=== PATIENT | male | born 1950 | race Caucasian/White ===

== ENCOUNTER 2016-11-06 09:21 | Outpatient (CLI) | payer OTHER ==
[~2016-11-06 09:21] MED LIST: FLUOXETINE20 MG PO; HYCET1 ML PO; MULTIVITAMIN1 TAB PO
--- NOTE | 2016-11-06 11:23 | DIAGNOSTIC IMAGING REPORT ---
PROCEDURE: CT THORAX WITH CONTRAST INDICATION: PNEUMONIA TECHNIQUE: 100 ml of Isovue 300 was injected intravenously and axial images were obtained of the chest with coronal and sagittal reformations. COMPARISON: None. FINDINGS: Emphysema with large right upper lobe bullae. There is a 3.4 x 3.7 cm spiculated right upper lobe mass. There is a 3 mm right upper lobe nodule (image 22). Nonenlarged 7 mm short axis pretracheal lymph nodes. No effusion. Calcified right pleural plaques and pericardium. Minor calcific atherosclerosis of the aorta. Calcification in the LAD. Normal heart size. 6 mm ill-defined hypoenhancing lesion in the right hepatic lobe (image 65). Moderate degenerative changes of the spine. IMPRESSION: 1. 3.7 x 3.4 cm spiculated right upper lobe mass suspicious for neoplasm. There is also a 3 mm right upper lobe round nodule, indeterminate. Recommend CT guided biopsy 2. Emphysema 3. Right pleural and pericardial calcified plaques suggestive of asbestosis 4. 6 mm hypoenhancing lesion of the right hepatic lobe, indeterminate. Recommend follow-up. 5. Results discussed with Deshawn Hobson.
== END 2016-11-06 23:00 ==
LOC: CT SRH 09:21
DX: J43.9 Emphysema, unspecified (principal); R91.1 Solitary pulmonary nodule; R91.8 Other nonspecific abnormal finding of lung field
CPT/HCPCS: 90074; 91631; 92560

== ENCOUNTER 2016-12-10 10:47 | Outpatient (CLI) | payer OTHER ==
--- NOTE | 2016-12-10 14:21 | DIAGNOSTIC IMAGING REPORT ---
PROCEDURE: NM SPLIT PULMONARY PERFUSION INDICATION: ABNORMAL CT THORAX TECHNIQUE: 56 0.0 mCi of technetium-99m MAA were injected intravenously. Scintigraphic images of both lungs and eight orthogonal projections were acquired. Quantitative scintigraphy of the upper, middle, and lower lung zone in the anterior and posterior projection was performed COMPARISON: CT 11/06/2016 FINDINGS: There is mildly heterogeneous perfusion to both lungs with mild relative paucity of perfusion to the upper lungs. No large wedge-shaped perfusion defect to raise possibility of a pulmonary embolus. To quantitatively assess perfusion distribution, lungs are partition to into the upper, middle, and lower zones and relative percentage perfusion of each zone was calculated by taking the geometric mean of anterior and posterior projections. Upper zone right lung 8.1% Middle zone right lung 25.9% Lower zone right lung 20.1% Total right lung 54.1% Upper zone left lung 8.2% Middle zone left lung 26.0% Lower zone left lung 11.7% Total left lung 45.9% IMPRESSION: 1. Split pulmonary perfusion percentages as described. 2. Heterogeneous pulmonary parenchymal perfusion consistent with CT findings of emphysema.
== END 2016-12-10 23:00 ==
LOC: NM SRH 10:47
DX: R91.8 Other nonspecific abnormal finding of lung field (principal)

== ENCOUNTER 2016-12-11 09:21 | Outpatient (CLI) | payer OTHER | END 2016-12-11 23:00 | disposition home or self-care (01) | LOC: RT SRH 09:21 | DX: J44.9 Chronic obstructive pulmonary disease, unspecified (principal) ==

== ENCOUNTER 2017-01-11 06:25 | Inpatient (IN) | payer OTHER ==
[2017-01-11] VITALS (20 sets, daily range): BP systolic 80–126; BP diastolic 43–71
[~2017-01-11] VITALS: Ht 188 cm; Wt 90.8 kg
--- NOTE | 2017-01-11 10:19 | DIAGNOSTIC IMAGING REPORT ---
PROCEDURE: XR FLUOROSCOPY UP TO 1 HOUR INDICATION: INTRAOP CHEST TUBE PLACEMENT TECHNIQUE: C-arm fluoroscopy provided for Dr. Espinoza. Fluoroscopy time of 1 minute 24 seconds. Radiation dose 25.5 mGy. COMPARISON: CT chest 11/06/2016. FINDINGS: Spot AP view demonstrates a double-lumen catheter positioned in the right mainstem bronchus. IMPRESSION: 1. C arm fluoroscopy provided for placement of a double-lumen catheter performed by Dr. Espinoza.
--- NOTE | 2017-01-11 12:31 | Operative Report ---
Operative Report Date of Surgery: 01/11/17 Preoperate Diagnosis: right upper lobe mass Postoperative Diagnosis: right upper lobe mass (squamous cell carcinoma) Surgeon: Yash Baum MD Packing Line Operator Surgeon: Terry Fitzgerald MD Procedure Performed: VATS wedge resection right upper lobe Anesthesia: Gen. endotracheal Indications: 66-year-old male with a known history of asbestos exposure was noted to have a right upper lobe lesion on x-ray. Radiology did not feel comfortable performing a needle biopsy because of the numerous block around the lesion. Radiology recommended wedge resection. CT of the chest and abdomen does not indicate this to metastasis or adenopathy. Pulmonary function study shows that the patient has FEV1 pre-bronchial dilation of 2100 cc and a post-bronchial dilation of 2430 cc's Surgical Technique: Patient brought to the operating room. Patient placed in the dorsal supine position where he underwent general double lumen endotracheal tube anesthesia. The patient was then placed in the left lateral decubitus position with his right upper extremity abducted from the side. The patient's right chest was anteriorly laterally and posteriorly were prepped using Betadine. The chest was then draped in a sterile fashion. An incision made approximately fourth intercostal space anterior axillary line. This incision was carried down through skin and subcutaneous tissue and the pleural cavity entered. A Thoracoport was introduced into the pleural cavity, and through this site a thoracoscopic video camera was introduced. We were able to eventually decompress and isolate the right lung. It should be noted that throughout the case the right lung periodically reexpand. This was a hindrance throughout the case. Under direct visualization a second Thoracoport and a third Thoracoport were placed in the posterior axillary line seventh intercostal space and fifth intercostal space at the scapular tip. Numerous large bullae were identified in the apex of the lung. The apex of the right upper llobe along with the medial aspect of the right upper lobe and middle lobe were firmly adherent to plaque of the pleura and the hilum. Attempts at the lung from this plaque was quite difficult and bloody. Patient continued to ooze throughout the case there was no definitive bleeding point. Eventually we were able to isolate the apex of the right upper lobe and using multiple loads of staplers we were able to wedge out the pathological process. This tissue was sent to pathology along with multiple biopsies of the plaque-like tissue of the pleural surface. Frozen section on the specimen revealed to be a squamous cell carcinoma with clear margins. The pleural biopsies indicated benign inflammatory process or evidence of mesothelial cells. Bleeding in the upper portion of the pleura and mediastinum was controlled using thrombin and Gelfoam. Because of the numerous large bullae, hindrance by the intermittent reexpansion of the right lung, and the dense adhesions to the pleural surface of the lung and to the chest wall pleura and mediastinum further surgery was not attempted. 2 chest tubes were placed through our most inferior/posterior thoracoports . (28 Faroese and 36 Faroese chest tubes) The lung was allowed to reexpand and there were numerous small leaks in the remaining right upper lobe. After all instrumentation and videoscope had been removed, the chest tubes were secured using 2-0 nylon suture. The most medial incisional site through which the specimen had been removed was sutured using 2-0 Polysorb continuous suture and 4-0 running subcuticular Polysorb. The patient was extubated and transferred to the recovery room in stable condition. There were no intraoperative or anesthetic complications. CONDITION: Stable to postoperative anesthesia recovery room. COMPLICATIONS: None ESTIMATED BLOOD LOSS: 900 cc FLUIDS: 1800 cc lactated Ringer's. OUTPUT/URINE: 270 cc SPECIMEN: [place] right upper lung.
--- NOTE | 2017-01-11 13:01 | DIAGNOSTIC IMAGING REPORT ---
PROCEDURE: XR CHEST 1 VIEW INDICATION: POST OP PACU TECHNIQUE: Portable AP view 12:43 p.m. COMPARISON: Chest CT 11/06/2016 and chest fluoroscopy 01/11/2017 FINDINGS: Two chest tubes on the right in good position. Small residual right apical pneumothorax. IMPRESSION: 1. Two chest tubes on the right with a small residual right apical pneumothorax.
[2017-01-12] VITALS (26 sets, daily range): BP systolic 101–140; BP diastolic 42–81
--- NOTE | 2017-01-12 07:06 | Progress Note ---
Subjective General 66-year-old male postop day #1 from thoracoscopic right upper lobe wedge resection for squamous cell carcinoma. During the night received 2 units of packed red blood cells. This morning had continuous air leak with localized subcutaneous crepitation. Patient denies shortness of breath. Patient is sore chest tube sites as expected. Physical Exam Vital Signs / I&Os Vital Signs Date Time Temp Pulse Resp B/P Pulse O2 O2 Flow FiO2 Ox Delivery Rate 01/12 0600 99.0 72 16 117/58 99 Nasal 6.0 Cannula 01/12 0510 80 18 114/57 97 Nasal 6.0 Cannula 01/12 0430 79 18 121/64 97 Nasal 6.0 Cannula 01/12 0312 74 16 115/56 99 Nasal 6.0 Cannula 01/12 0202 98.1 74 16 117/59 99 Nasal 6.0 Cannula 01/12 0100 76 18 140/80 96 Nasal 6.0 I&O 01/11 0800 01/11 1600 01/12 0000 Intake Total 1000 2005 2431 Output Total 3160 1180 Balance 1000 -1155 1251 General Appearance Alert, Oriented X3 Lungs Clear to auscultation, chest tube indicates leak and 260 cc of bloody output last 8 hours. Cardiovascular Regular rate and rhythm Skin no cyanosis Neurological No lateralizing signs Psych/Mental Status Mood normal LAB Results Laboratory Tests 01/11 01/11 01/11 01/12 1305 1605 2100 0505 Chemistry Plasma Sodium (136 - 145 mmol/L) 139 Plasma Potassium (3.5 - 5.1 mmol/L) 4.0 Plasma Chloride (98 - 107 mmol/L) 106 CO2 (Enzymatic) (21 - 32 mmol/L) 28 BUN (7 - 18 mg/dL) 11 Creatinine (0.6 - 1.3 mg/dL) 0.8 Est GFR ( Amer) (mL/min) >60 Est GFR (Non-Af Amer) (mL/min) >60 Glucose (70 - 110 mg/dL) 148 Plasma Calcium (8.5 - 10.1 mg/dL) 7.7 Hematology WBC (4.5 - 11.5 K/uL) 14.5 RBC (4.50 - 5.90 M/uL) 3.40 Hgb (13.5 - 17.5 gm/dL) 12.0 9.6 11.6 10.0 Hct (41.0 - 53.0 %) 36.8 29.3 35.0 30.1 MCV (80 - 100 fL) 89 MCH (26 - 34 pg) 29 RDW (11.6 - 14.8 %) 17.4 Neut % (Auto) (50 - 75 %) 79.7 Lymph % (Auto) (25 - 40 %) 10.0 [place] % (Auto) (3 - 14 %) 10.0 Eos % (Auto) (0 - 4 %) 0 Baso % (Auto) (0 - 2 %) 0.3 Plt Count, EDTA (150 - 400 K/uL) 198 PUBS MCHC (31 - 37 g/dL) 33 Imaging Chest x-ray pending Assessment and Plan Problem List 1. SQUAMOUS CELL CARCINOMA RIGHT UPPER LOBE Plan Resolved 2. STATUS POST APICAL WEDGE RESECTION RIGHT UPPER LOBE Plan Postoperative air leak. Check chest x-ray. For the time being we'll place chest tube on water seal. Continue to monitor output from chest tube drainage. Transfuse as appropriate. Hemoglobin and hematocrit at noon.
--- NOTE | 2017-01-12 07:12 | DIAGNOSTIC IMAGING REPORT ---
PROCEDURE: XR CHEST 1 VIEW INDICATION: post op wedge resection right upper lobe TECHNIQUE: Portable AP view 05:42 a.m. COMPARISON: Chest x-ray 01/11/2017. FINDINGS: Two right chest tubes are stable in position with no change in the small to mild right apical pneumothorax. Increasing subcutaneous emphysema in the right chest wall. Progression of mild infiltrate throughout the right lung. Left basilar atelectasis. Heart size, mediastinum and prior vessels are normal. Thorax is normal. IMPRESSION: 1. Two stable right chest tubes with no change in the small to mild right apical pneumothorax 2. Progression of the diffuse mild right lung infiltrate 3. Left basilar atelectasis
--- NOTE | 2017-01-12 10:41 | DIAGNOSTIC IMAGING REPORT ---
PROCEDURE: XR CHEST 1 VIEW INDICATION: post op air leak r/o expanding pneuothorax TECHNIQUE: Portable AP view 10:00 a.m. COMPARISON: Chest 01/12 and 01/11 FINDINGS: Two right chest tubes are stable in position with a decrease in the small right apical pneumothorax. Decrease in the mild infiltrate throughout the right lung. Heart size, mediastinum and prior vessels are normal. Thorax is normal. IMPRESSION: 1. Decrease in small right apical pneumothorax. 2. Decrease in mild right lung infiltrate
--- NOTE | 2017-01-12 18:08 | DIAGNOSTIC IMAGING REPORT ---
PROCEDURE: XR CHEST 1 VIEW INDICATION: Follow-up chest tube and pneumothorax. Chest tube to water seal. TECHNIQUE: Portable AP view (1730 hours) COMPARISON: Compared to chest x-ray earlier today (01/12/2017, 1005 hours) FINDINGS: Two right chest tubes are unchanged in position. There is mild increase in moderate right apical pneumothorax. There are moderate parenchymal changes in the right upper lung apex (no change). There is mild basilar volume loss Heart and mediastinum are normal. Thorax is normal. IMPRESSION: 1. Mild increase in moderate right apical pneumothorax. 2. Two chest tubes unchanged in position. 3. Mild bibasilar volume loss. 4. Findings discussed with Dr. Baum.
[2017-01-13] VITALS (22 sets, daily range): BP systolic 106–132; BP diastolic 54–72
--- NOTE | 2017-01-13 05:30 | DIAGNOSTIC IMAGING REPORT ---
PROCEDURE: XR CHEST 1 VIEW INDICATION: Follow-up chest tubes in right pneumothorax. TECHNIQUE: Portable AP view (0510 hours). COMPARISON: Compared to chest x-ray on 01/12/2017 at 1730 hours) FINDINGS: Two right chest tubes are unchanged in position. There has been moderate improvement with decreasing right pneumothorax (small residual). There are resolving parenchymal changes at the right lung apex with resolving basilar atelectasis. There are resolving of moderate subcutaneous emphysema over the right hemithorax. Heart and mediastinum are normal. Thorax is normal. IMPRESSION: 1. Two right chest tubes are unchanged in position. 2. Decreasing right apical pneumothorax with small residual. 3. Resolving parenchymal changes at the right lung apex with resolving atelectasis at the lung bases.
--- NOTE | 2017-01-13 06:50 | Progress Note ---
Subjective General Postoperative day 2 status post VATS right upper lobe wedge resection of squamous cell carcinoma. Patient's postoperative course is complicated with ongoing oozing requiring so for a total of 4 units packed red blood cell transfusion. Patient has received his second 1000 mg dose of TEA. Patient continues to have an air leak from his chest tubes. Chest x-ray this morning however shows some improvement with residual right apical pneumothorax. Patient denies any shortness of breath or chest pain. His only discomfort is at the chest tube sites. Physical Exam Vital Signs / I&Os Chest tube A output over the last 12 hours 150 cc Chest tube be has put out approximately 240 cc over the last 12 hours VITALS SIGNS: Date Time Temp Pulse Resp B/P Pulse O2 O2 Flow FiO2 Ox Delivery Rate 01/13 0608 77 17 97 Nasal Cannula 01/13 0500 99.0 79 13 130/72 97 04 I&O 01/12 0800 01/12 1600 01/13 0000 Intake Total 1730 1697 1276 Output Total 677 439 413 Balance 1053 1258 863 General Appearance Oriented X3, Cooperative, No acute distress HEENT PERRLA Lungs left lung clear. Right long coarse rhonchi. Crepitation anterior chest wall. Both chest tubes are titling. Serosanguineous output noted from both tubes. Neck No JVD Cardiovascular Regular rate and rhythm Skin no peripheral cyanosis Neurological No lateralizing signs Psych/Mental Status Mood normal LAB Results Laboratory Tests 01/12 01/12 01/13 1220 1700 0530 Hematology Hgb (13.5 - 17.5 gm/dL) 9.3 9.1 10.3 Hct (41.0 - 53.0 %) 28.0 26.9 31.3 Microbiology Date/Time Procedure - Status Source Growth 01/12 0900 MRSA Screen - RECD NOSE Imaging Chest x-ray this morning shows improvement in right apical pneumothorax, small residual still noted. Assessment and Plan Problem List 1. STATUS POST APICAL WEDGE RESECTION RIGHT UPPER LOBE Plan Continued pleural leak with residual apical pneumothorax. Continue wall suction. Monitor chest x-rays. Continued slow bleeding at surgical site. Continue to monitor hemoglobin and hematocrit. Transfuse as appropriate.
[2017-01-14] VITALS (11 sets, daily range): BP systolic 107–139; BP diastolic 54–84
--- NOTE | 2017-01-14 06:36 | Progress Note ---
Subjective General 66-year-old male status post VATS right upper lobe wedge resection for squamous cell carcinoma. Patient has remained stable throughout the night. No shortness of breath or chest pain. White count 9000. Hemoglobin and hematocrit this morning is 28.7 and 9.6. He initially afternoon hemoglobin was 30. Chest leak has improved somewhat. Physical Exam Vital Signs / I&Os Vital Signs Date Time Temp Pulse Resp B/P Pulse O2 O2 Flow FiO2 Ox Delivery Rate 01/14 0606 82 12 138/84 96 Nasal 3.0 I&O: Chest tube 30 cc. Chest tube 140 cc over the last 24 hours. 01/13 0800 01/13 1600 01/14 0000 Intake Total 1923 1514 240 Output Total 161 128 1729 Balance 1168 749 -970 General Appearance Alert, Oriented X3, Cooperative Lungs Clear to auscultation, chest tube continues to leak but less than yesterday Cardiovascular Regular rate and rhythm Extremities No edema, no peripheral cyanosis Skin No Rashes (skin is warm and dry), skin is warm and dry Neurological No lateralizing signs Psych/Mental Status Mood normal LAB Results Laboratory Tests 01/13 01/14 1659 0515 Hematology WBC (4.5 - 11.5 K/uL) 9.0 RBC (4.50 - 5.90 M/uL) 3.22 Hgb (13.5 - 17.5 gm/dL) 10.1 9.6 Hct (41.0 - 53.0 %) 30.2 28.7 MCV (80 - 100 fL) 89 MCH (26 - 34 pg) 30 RDW (11.6 - 14.8 %) 15.7 Neut % (Auto) (50 - 75 %) 72.4 Lymph % (Auto) (25 - 40 %) 16.4 [place] % (Auto) (3 - 14 %) 10.2 Eos % (Auto) (0 - 4 %) 0.8 Baso % (Auto) (0 - 2 %) 0.2 Plt Count, EDTA (150 - 400 K/uL) 155 PUBS MCHC (31 - 37 g/dL) 34 Imaging Chest x-ray this morning shows small residual apical pneumothorax much improved over 2 days ago. Assessment and Plan Problem List 1. STATUS POST APICAL WEDGE RESECTION RIGHT UPPER LOBE Plan Status post VATS right upper lobe wedge resection postop day 3. Continue to monitor hemoglobin and hematocrit. Chest tube leak as expected, appears to be slowing down. Continue to monitor on wall suction
--- NOTE | 2017-01-14 07:16 | DIAGNOSTIC IMAGING REPORT ---
PROCEDURE: XR CHEST 1 VIEW INDICATION: post op wedge resection right upper lobe TECHNIQUE: Single view chest. 0506 hours COMPARISON: 01/13/2017 FINDINGS: Two right-sided chest tubes are in position, stable. Moderate subcutaneous emphysema along the right chest and axillary region. Continuing decrease in size of right apical pneumothorax. Pleural fluid layers laterally and apically. Aeration of the right middle and lower lobe is about stable. Moderate left base atelectasis. Stable cardiomediastinal contour. IMPRESSION: 1. Two right-sided chest tubes in stable position. No change to subcutaneous emphysema. 2. Slight interval decrease in size of right apical pneumothorax. 3. Left base atelectasis.
[2017-01-15 02:19] VITALS: BP 138/62
--- NOTE | 2017-01-15 05:54 | Progress Note ---
Subjective General A 66-year-old male who is postoperative day #4 following VATS right upper lobe wedge resection for squamous cell carcinoma. He states he is comfortable no shortness of breath or chest pain. Physical Exam Vital Signs / I&Os During the last 24 hours chest tube A has put out 210 cc the chest to be has put out 140 cc Vital Signs Date Time Temp Pulse Resp B/P Pulse O2 O2 Flow FiO2 Ox Delivery Rate 01/15 0219 98.4 78 16 138/62 98 Nasal 3.0 Cannula Cannula I&O 01/14 0800 01/14 1600 01/15 0000 Intake Total 1365 1158 250 Output Total 1670 1055 1720 Balance -305 103 -1470 General Appearance Alert, Oriented X3, Cooperative, No acute distress Lungs Clear to auscultation, patient has [address] No longer experiencing continuously. Air leak in both chest tubes noted with expiration. Cardiovascular Regular rate and rhythm Extremities No edema Skin no peripheral cyanosis Neurological No lateralizing signs Psych/Mental Status Mood normal LAB Results Laboratory Tests 01/15 01/15 0420 0500 Hematology WBC Cancelled RBC Cancelled Hgb (13.5 - 17.5 gm/dL) 9.6 Cancelled Hct (41.0 - 53.0 %) 29.2 Cancelled MCV Cancelled MCH Cancelled RDW Cancelled Plt Count, EDTA Cancelled PUBS MCHC Cancelled Imaging Chest x-ray this morning is pending. Assessment and Plan Problem List 1. STATUS POST APICAL WEDGE RESECTION RIGHT UPPER LOBE Plan Postop day #4. Stable. Continued air leak. Hemoglobin and hematocrit stable. Plan is to change dressings. We'll start patient on ferrous sulfate by mouth. Continue present management.
[2017-01-15 06:57] VITALS: BP 135/74
--- NOTE | 2017-01-15 07:05 | DIAGNOSTIC IMAGING REPORT ---
PROCEDURE: XR CHEST 1 VIEW INDICATION: post op wedge resection right upper lobe TECHNIQUE: Portable AP view 05:05 a.m. COMPARISON: Chest x-ray 01/14/2017 FINDINGS: Two right chest tubes are in stable position with resolved right apical pneumothorax. Stable right pleural effusion/thickening. Improved aeration of the right lung. There is moderate subcutaneous emphysema in the right chest wall and axilla. Improved left basilar atelectasis. Heart size and part vessels are normal. Bony thorax is unremarkable . IMPRESSION: 1. Two right chest tubes in stable position with resolved pneumothorax and improved aeration of the right lung 2. Improving left basilar atelectasis
[2017-01-15 10:12] VITALS: BP 124/70
[2017-01-15 14:28] VITALS: BP 117/66
[2017-01-15 18:09] VITALS: BP 125/75
[2017-01-15 22:26] VITALS: BP 139/73
[2017-01-16 04:42] VITALS: BP 137/69
--- NOTE | 2017-01-16 06:04 | DIAGNOSTIC IMAGING REPORT ---
PROCEDURE: XR CHEST 1 VIEW INDICATION: Follow-up right chest tube and pneumothorax. TECHNIQUE: Portable AP view (0535 hours). COMPARISON: Compared to chest x-ray and 01/15/2017. FINDINGS: Two right chest tubes remain unchanged in position with small amount of right subcutaneous emphysema. No definite pneumothorax. Resolving basilar volume loss. Heart and mediastinum are normal. Thorax is normal. IMPRESSION: 1. Two right chest tube in position. 2. No definite evidence of pneumothorax. 3. Resolving bibasilar atelectasis.
[2017-01-16 09:18] VITALS: BP 139/71
--- NOTE | 2017-01-16 11:03 | Progress Note ---
Subjective General No new complaints. Pt. was sleeping but woke up. He reports a good sized BM early this morning and no more bloating. He would like his Pepsi. Respiratory Denies: Cough, Wheezing. Physical Exam Vital Signs / I&Os Vital Signs Date Time Temp Pulse Resp B/P Pulse O2 O2 Flow FiO2 Ox Delivery Rate 01/16 0918 98.1 76 16 139/71 98 Nasal 3.0 Cannula 01/16 0814 Nasal 3.0 Cannula 01/16 0442 98.8 79 137/69 97 Nasal 3.0 Cannula 01/15 2226 98.4 75 18 139/73 97 Nasal 3.0 Cannula 01/15 2123 Nasal 3.0 Cannula 01/15 2049 3.0 01/15 1809 98.1 75 20 125/75 98 Nasal 3.0 Cannula 01/15 1428 98.4 74 20 117/66 98 Nasal 3.0 Cannula 01/15 1332 3.0 I&O 01/15 0800 01/15 1600 01/16 0000 Intake Total 250 1200 890 Output Total 1020 1160 850 Balance -770 40 40 General Appearance Alert, Oriented X3, Cooperative Lungs Normal exam, Clear to auscultation, Normal air movement, there is an air leak mainly from the B chest tube. Abdomen Normal bowel sounds, Soft, No tenderness Imaging the chest x ray film and reports were reviewed and show decreasing atelectasis and no significant pneumothorax Assessment and Plan Problem List 1. STATUS POST APICAL WEDGE RESECTION RIGHT UPPER LOBE Plan OK to advance diet and have sodas. We are awaiting resolution of the air leak.
[2017-01-16 14:32] VITALS: BP 126/63
[2017-01-16 18:46] VITALS: BP 114/57
[2017-01-16 22:08] VITALS: BP 126/63
[2017-01-17 03:07] VITALS: BP 122/74
--- NOTE | 2017-01-17 07:11 | DIAGNOSTIC IMAGING REPORT ---
PROCEDURE: XR CHEST 1 VIEW INDICATION: POST-OP WEDGE RESECTION RUL TECHNIQUE: Portable AP view 04:57 a.m. COMPARISON: Chest x-ray 01/16/2017. FINDINGS: Two right chest tubes remain in stable position without residual pneumothorax. Right chest wall subcutaneous emphysema is unchanged. Mild left basilar atelectasis. Heart size, mediastinum and pulmonary vessels are normal. Thorax is normal. IMPRESSION: 1. Two stable right chest tubes without pneumothorax 2. Mild left basilar atelectasis
[2017-01-17 07:17] VITALS: BP 136/75
--- NOTE | 2017-01-17 09:21 | Progress Note ---
Subjective General Post Op Day 6 lung resection Pt. is here with a persistant air leak but other sifuentes feels fine. Physical Exam Vital Signs / I&Os Vital Signs Date Time Temp Pulse Resp B/P Pulse O2 O2 Flow FiO2 Ox Delivery Rate 01/17 0717 99.0 91 13 136/75 97 Nasal 3.0 Cannula 01/17 0715 Nasal 3.0 Cannula 01/17 0307 98.8 83 13 122/74 96 Nasal 3.0 Cannula 01/17 0046 3.0 01/16 2208 97.9 81 15 126/63 97 Nasal 3.0 Cannula 01/16 1948 Nasal 3.0 Cannula 01/16 1846 99.1 81 17 114/57 99 Nasal 3.0 Cannula 01/16 1432 99.0 67 14 126/63 100 Nasal 3.0 Cannula I&O 01/16 0800 01/16 1600 01/17 0000 Intake Total 250 1920 480 Output Total 1010 1050 400 Balance -760 870 80 General Appearance Alert, Oriented X3, Cooperative Lungs Normal air movement, chest x ray stable Assessment and Plan Problem List 1. STATUS POST APICAL WEDGE RESECTION RIGHT UPPER LOBE Plan continue tube suction
[2017-01-17 11:16] VITALS: BP 125/64
[2017-01-17 13:25] VITALS: BP 117/67
[2017-01-17 18:45] VITALS: BP 120/62
[2017-01-17 23:15] VITALS: BP 127/70
[2017-01-18 03:35] VITALS: BP 111/65
[2017-01-18 06:00] VITALS: BP 109/61
--- NOTE | 2017-01-18 06:48 | Progress Note ---
Subjective General 66-year-old male postop day 7, status post VATS right upper lobe wedge resection. Continue air leak on 30 cm wall suction. No shortness of breath or chest pain. Physical Exam Vital Signs / I&Os Vital Signs Date Time Temp Pulse Resp B/P Pulse O2 O2 Flow FiO2 Ox Delivery Rate 01/18 06 99.1 89 13 109/61 98 Nasal 3.0 Cannula Cannula I&O chest tube A output 110 cc. Chest tube B 140 cc output 01/17 0800 01/17 1600 01/18 0000 Intake Total 650 480 440 Output Total 900 160 870 Balance -250 320 -430 General Appearance Alert, Oriented X3, Cooperative, No acute distress Lungs Clear to auscultation, air leak on 30 cm wall suction. Cardiovascular Regular rate and rhythm Extremities No edema Skin no peripheral cyanosis Neurological No lateralizing signs Psych/Mental Status Mood normal Imaging Chest x-ray results pending. Yesterday's result shows no pneumothorax. Assessment and Plan Problem List 1. STATUS POST APICAL WEDGE RESECTION RIGHT UPPER LOBE Plan Status post apical wedge resection. Continued leak. Plan is to decrease wall suction from 30 to 20 cm wall suction and a chest x-ray in a.m. hemoglobin and hematocrit today.
--- NOTE | 2017-01-18 07:08 | DIAGNOSTIC IMAGING REPORT ---
PROCEDURE: XR CHEST 1 VIEW INDICATION: POST OP WEDGE RESECTION. CHEST TUBES IN PLACE TECHNIQUE: Portable AP view (0530 hours). COMPARISON: Compared to chest x-ray on 01/17/2017. FINDINGS: Two right chest tubes in position. No evidence of pneumothorax. Mild basilar volume loss (no change). Heart and mediastinum are normal. Thorax is normal. IMPRESSION: 1. Two right chest tubes in position. No evidence of pneumothorax. 2. Mild basilar volume loss. 3. No change.
[2017-01-18] MEDS ORDERED: FLUOXETINE HCL20 MG PO (09:53)
[2017-01-18 10:36] VITALS: BP 116/68
[2017-01-18 14:43] VITALS: BP 125/65
[2017-01-18 19:43] VITALS: BP 116/59
[2017-01-18 22:37] VITALS: BP 121/58
[2017-01-19 05:51] VITALS: BP 112/69
--- NOTE | 2017-01-19 05:57 | DIAGNOSTIC IMAGING REPORT ---
PROCEDURE: XR CHEST 1 VIEW INDICATION: s/p right apical wedge resection TECHNIQUE: Portable AP view 05:16 a.m. COMPARISON: Chest x-ray 01/18/2017 FINDINGS: Two right chest tubes are stable in position. There is no pneumothorax. No change in the right apical parenchymal changes. Improved left basilar atelectasis. Heart and mediastinum are normal. Thorax is normal. IMPRESSION: 1. Two stable right chest tubes with no pneumothorax 2. Improved left basilar atelectasis
--- NOTE | 2017-01-19 06:40 | Progress Note ---
Subjective General 66-year-old male postop day #8 status post VATS right apical wedge resection for squamous cell carcinoma. Presently doing well asymptomatic no shortness of breath or chest pain. Hemoglobin stable at 31. Physical Exam Vital Signs / I&Os MAXIMUM TEMPERATURE 99 3 Vital Signs Date Time Temp Pulse Resp B/P Pulse O2 O2 Flow FiO2 Ox Delivery Rate 01/19 0551 97.9 86 18 112/69 100 Nasal 3.0 Cannula I&O 01/18 0800 01/18 1600 01/19 0000 Intake Total 100 810 480 Output Total 445 430 515 Balance -345 380 -35 General Appearance Alert, Oriented X3, No acute distress Lungs Clear to auscultation, chest tube no leak. Chest tube output A 70 cc. Chest tube output B 100 cc Cardiovascular Regular rate and rhythm Extremities No edema Skin warm and dry. No peripheral cyanosis Neurological No lateralizing signs Psych/Mental Status Mood normal LAB Results Laboratory Tests 01/18 1515 Hematology Hgb (13.5 - 17.5 gm/dL) 10.4 Hct (41.0 - 53.0 %) 31.3 Imaging Chest x-ray this morning shows no evidence of pneumothorax. Assessment and Plan Problem List 1. STATUS POST APICAL WEDGE RESECTION RIGHT UPPER LOBE Plan . Stable. No evidence of leak from chest tube. Plan repeat chest x-ray in a.m. Decrease wall suction to 10 cm wall suction today.
[2017-01-19 11:13] VITALS: BP 117/63
[2017-01-19 14:15] VITALS: BP 126/68
[2017-01-19 22:52] VITALS: BP 120/57
[2017-01-20 03:55] VITALS: BP 125/63
--- NOTE | 2017-01-20 06:56 | Progress Note ---
Subjective General 66-year-old male patient who is postoperative day #9 VATS right upper lobe wedge resection for squamous cell carcinoma. Asymptomatic. No shortness of breath. No chest pain. Chest tubes no leak. Physical Exam Vital Signs / I&Os Vital Signs Date Time Temp Pulse Resp B/P Pulse O2 O2 Flow FiO2 Ox Delivery Rate 01/20 0355 98.1 88 18 125/63 94 Nasal 1.0 Cannula / 0306 1.0 01/19 2252 99.3 94 18 120/57 93 Nasal 1.0 Cannula / 1954 Room Air 01/19 1415 92 18 126/68 95 Room Air / 1113 99.3 90 18 117/63 94 Room Air 0.0 01/19 0757 Nasal 2.0 Cannula 01/19 0754 2.0 I&O chest tube and a 30 cc in 24 hours. Chest tube be 50 cc in 24 hours. 01/19 0800 / 1600 / 0000 Intake Total 980 680 290 Output Total 1080 1080 850 Balance -100 -400 -560 General Appearance Alert, Oriented X3, No acute distress Lungs Clear to auscultation, no air leak from chest tube A or B. Cardiovascular Regular rate and rhythm Extremities No edema Skin no peripheral cyanosis Neurological No lateralizing signs Psych/Mental Status Mood normal Imaging Chest x-ray pending this morning Assessment and Plan Problem List 1. STATUS POST APICAL WEDGE RESECTION RIGHT UPPER LOBE Plan Chest tube A/B chest tube be no leak. Patient is stable postoperatively. Chest tube a discontinued. Patient tolerated procedure well. We'll continue 10 cm wall suction. Once chest x-ray reviewed, we will place chest tube to water seal. Repeat chest x-ray in a.m. on water seal is stable we will discontinue chest tube B.
--- NOTE | 2017-01-20 07:23 | DIAGNOSTIC IMAGING REPORT ---
PROCEDURE: XR CHEST 1 VIEW INDICATION: s/p right upper lobe wedge resection TECHNIQUE: Single view chest. 05:15 hours COMPARISON: 01/19/2017 at 05:16 hours FINDINGS: Two right-sided chest tubes are in position. Cardiomediastinal contour and central vessels are stable, within normal limits. Slight decrease in bibasilar strandy infiltrate/atelectasis. No right-sided pneumothorax. Small right pleural fluid layering laterally and apically. Intact osseous structures. IMPRESSION: 1. Continued, slight improvement in bilateral lower lung aeration. 2. Stable right-sided chest tubes without right pneumothorax.
[2017-01-20 07:35] VITALS: BP 108/63
[2017-01-20 11:19] VITALS: BP 111/57
--- NOTE | 2017-01-20 14:13 | DIAGNOSTIC IMAGING REPORT ---
PROCEDURE: XR CHEST 1 VIEW INDICATION: water seal post right apical wedge resection TECHNIQUE: Portable AP view 02:02 p.m. COMPARISON: Chest same date 05:16 a.m. FINDINGS: One chest tube has been removed. Cardiomediastinal contour and central vessels are stable, within normal limits. Slight decrease in bibasilar strandy infiltrate/atelectasis. No right-sided pneumothorax. Small right pleural fluid layering laterally and apically. Intact osseous structures. IMPRESSION: 1. Single right-sided chest tube without right pneumothorax.
[2017-01-20 14:35] VITALS: BP 112/77
[2017-01-20 19:02] VITALS: BP 122/70
[2017-01-20 22:46] VITALS: BP 117/67
[2017-01-21 06:20] VITALS: BP 109/63
--- NOTE | 2017-01-21 07:33 | DIAGNOSTIC IMAGING REPORT ---
PROCEDURE: XR CHEST 1 VIEW INDICATION: r/o right pneumothorax, postop right upper lobectomy TECHNIQUE: Single view chest. 05:30 hours COMPARISON: 01/20/1979 1402 hours, and multiple prior chest x-rays. FINDINGS: Single right-sided chest tube remains in stable position. Postoperative right apical and superomedial air and fluid collection. The superomedial visceral pleural margin of the right lower lobe is not better seen. There are mild strandy parenchymal changes in the right lower lobe adjacent to the chest tube. Stable amount of pleural fluid layering laterally. Mild bibasilar atelectasis. The cardiomediastinal contour and central vessels are normal. Intact osseous structures. IMPRESSION: 1. The superomedial visceral pleura of the right lower lobe is now better seen and indicates a moderate-sized hydropneumothorax in the upper lobe region. This is relatively unchanged in size compared to multiple prior studies. 2. Findings called to the floor.
[2017-01-21 10:48] VITALS: BP 116/63
[2017-01-21 14:59] VITALS: BP 121/60
[2017-01-21] MEDS ORDERED: HYCET1 ML PO (15:58)
--- NOTE | 2017-01-21 16:00 | Provider's Discharge Care Plan ---
Problem, Goal, Plan Problem List 1. S/P VATS RIGHT UPPER LOBE WEDGE RESECTION Goals: Diagnostic testing, Improve disease control, Therapeutic intervention Instructions: Follow up as directed, Take meds as directed, RETURN TO ER IF YOU HAVE SEVERE SHORTNESS OF BREATH
--- NOTE | 2017-01-21 16:15 | Discharge Summary ---
Discharge Summary Report Admit Date 01/11/17 Discharge Date 01/21/17 Admission Diagnosis Right upper lobe lesion. Discharge Diagnosis Squamous cell carcinoma right upper lobe Brief History 66-year-old male who on routine chest x-ray was noted to have a lesion in the right upper lobe. This was followed by a CAT scan which showed a highly suspicious lesion of the right upper lobe. Radiology felt they could not perform needle biopsy on the lesion secondary to his numerous ballottement. Patient was referred to [facility]. Were he was scheduled for VATS. Hospital Course Patient was admitted to [facility]. Taken to the operating room where he underwent VATS. On entering the right pleural cavity, the patient was noted to have large bullae and dense adhesions of the right upper and superior aspect middle lobe to the hilum. He was noted also to have dense adhesions to the parietal pleura as well. Attempt was made to free the right upper lobe from the parietal pleura and the hilum. This resulted in a large raw surface area and bleeding. We felt that we could not safely perform a right upper lobe lobectomy so instead a wedge resection of the lesion was performed. On frozen section the lesion was a squamous cell carcinoma whose margins were free of tumor. The patient postoperatively was transferred to the recovery room and eventually to the intensive care unit for monitoring. Patient continued to put out considerable amount of blood from his chest tubes. Postoperatively his crit dropped from 43 to 26. He was treated with resuscitation and blood transfusions and TEA. First 2 days postoperatively he received a total of 4 units packed red blood cells and 2 boluses of TEA. Patient hematocrit stabilized at 29. Patient continued to put out considerable amount of drainage from his chest tubes and had an impressive pleural leak. This was expected with the amount of dissection and the numerous bullae that the patient was noted to have intraoperatively. Treating the patient conservatively with cell wall suction. The leak eventually subsided as did the drainage from the chest cavity. On postoperative day #9 his most posterior chest tube was discontinued and on postoperative day #10 his anterior chest tube was discontinued. It should be noted that the chest tubes were titling nicely and there was no air leak. Chest x-ray revealed a stable apical hydropneumothorax. Patient denied any shortness breath or chest pain. Patient remained stable post chest tube removal and was discharged home. Hematocrit stable at 31. General Appearance Oriented X3 HEENT PERRLA Lungs Clear to auscultation Cardiovascular Regular Rate Abdomen Soft Skin NO PERIPHERAL CYANOSIS Psych/Mental Status Mental status NL Lab/Imaging Hematocrit stable at 31. Chest x-ray on day of discharge showed stable right apical hydropneumothorax Discharge Instructions/Meds Patient was discharged home on wound care instructions. To resume his home medications which included Fluxetine 40 mg. daily. He was also given a prescription for Hycet elixir 1 tablespoon every 6 hours when necessary pain He was to follow-up with [facility] within the week and obtain a PA and lateral chest x-ray prior to the visit. Activity as tolerated. Diet as tolerated. Patient was instructed to return emergency room for any severe shortness of breath.
--- NOTE | 2017-01-21 16:41 | Progress Note ---
Subjective General Comfortable. No SOB. No Chest pain Physical Exam Vital Signs / I&Os Vital Signs Date Time Temp Pulse Resp B/P Pulse O2 O2 Flow FiO2 Ox Delivery Rate 01/21 1459 98.1 91 16 121/60 95 01/21 1048 99.5 85 18 116/63 93 Room Air 01/21 0745 Room Air 01/21 0742 1.0 01/21 0620 98.8 90 20 109/63 94 Nasal 1.0 Cannula 01/21 0330 86 20 94 Nasal 1.0 Cannula 01/20 2246 99.9 84 20 117/67 94 Room Air 01/20 2000 Room Air 01/20 1902 99.0 87 20 122/70 94 Room Air 1.0 I&O 01/20 0800 01/20 1600 01/21 0000 Intake Total 1090 580 300 Output Total 720 700 225 Balance 370 -120 75 General Appearance Oriented X3 Lungs Clear to auscultation, Chest tube titling nicely with no leak in chamber with deep inspirtation and coughing Cardiovascular Regular rate and rhythm Extremities No edema Imaging apical hydropneumothorax unchanged and stable Assessment and Plan Problem List 1. S/P VATS RIGHT UPPER LOBE WEDGE RESECTION Plan will d/c chest tube later today and d/c home.
== END 2017-01-21 18:30 | disposition home or self-care (01) | DRG 164 ==
LOC: CC SRH 06:25 → SCU SRH 06:25 → U SRH 07:30 → CC SRH 13:43
PROVIDERS: ADMIT Specialist
PROC: 30233N1 Transfusion of Nonautologous Red Blood Cells into Peripheral Vein, Percutaneous Approach (ICD-10-PCS; 2017-01-11)
PROC: 0BTC4ZZ Resection of Right Upper Lung Lobe, Percutaneous Endoscopic Approach (ICD-10-PCS; principal; 2017-01-11 07:30)
PROC: 0BBN4ZX Excision of Right Pleura, Percutaneous Endoscopic Approach, Diagnostic (ICD-10-PCS; principal; 2017-01-11 07:30)
PROC: 30233N1 Transfusion of Nonautologous Red Blood Cells into Peripheral Vein, Percutaneous Approach (ICD-10-PCS; 2017-01-12)
DX: C34.11 Malignant neoplasm of upper lobe, right bronchus or lung (principal); J43.9 Emphysema, unspecified; J93.82 Other air leak; D62 Acute posthemorrhagic anemia; J92.9 Pleural plaque without asbestos; J98.4 Other disorders of lung; Z77.090 Contact with and (suspected) exposure to asbestos; Z87.891 Personal history of nicotine dependence
CPT/HCPCS: 50002; 50032; 60001; 70002; 80102; 80118; 80212; 80248; 80311; 81369; 81501; 81742; 82137; 82723; 82794; 82983; 83068; 83338; 83455; 83475; 83526; 84038; 84044; 84188; 84532; 85241; 85592; 90001; 90047; 90074; 90100; 90155; 91004; 91162; 91163; 91544; 92132; 94060; 95059

== ENCOUNTER 2017-01-25 08:52 | Outpatient (CLI) | payer OTHER ==
[~2017-01-25 08:52] MED LIST changes: +FLUOXETINE HCL20 MG PO
--- NOTE | 2017-01-25 09:41 | DIAGNOSTIC IMAGING REPORT ---
PROCEDURE: XR CHEST 2 VIEW INDICATION: S/P VATS RIGHHT UPPER LOBE WEDGE RESECTION TECHNIQUE: PA and lateral view. COMPARISON: Chest x-ray 01/21/2017 FINDINGS: Right chest tube has been removed. Small multiloculated right apical hydropneumothorax. There is mild right hemithorax volume loss with right pleural thickening. Right suprahilar mass (previously obscured). Right mid lung scarring. Resolving subcutaneous emphysema in the right lateral chest wall. Left lung is clear. Cardiovascular structures are normal. Bony thorax is unremarkable. IMPRESSION: 1. Right chest tube removed with a small multiloculated right apical hydropneumothorax. 2. Right shoulder hilar mass 3. Right mid lung scarring
== END 2017-01-25 23:00 ==
LOC: XR SRH 08:52
DX: Z98.890 Other specified postprocedural states (principal); J98.4 Other disorders of lung